=== PATIENT | male | born 1960 | race Caucasian/White ===

== ENCOUNTER 2023-07-30 10:24 | Outpatient (OUT) | payer OTHER, SELFPAY ==
[2023-07-30 11:07] LABS: Estimated Average Glucose 171 mg/dL; Glycohemoglobin A1C 7.6 % (4.5-6.2)
[2023-07-30 11:39] LABS: Alanine Aminotransferase 28 U/L (16-63); Albumin Globulin Ratio 0.9; Albumin Level 3.8 g/dL (3.4-5.0); Alkaline Phosphatase 77 U/L (46-116); Anion Gap 7.7; Aspartate Amino Transferase 19 U/L (15-37); BUN Creatinine Ratio 12.8; Bilirubin Direct 0.1 mg/dL (0.0-0.2); Bilirubin Total 0.4 mg/dL (0.2-1.0); Calcium 8.8 mg/dL (8.5-10.1); Carbon Dioxide 30.6 mmol/L (21.0-32.0); Chloride 103 mmol/L (98-107); Chol HDL Ratio 3.7; Cholesterol 158 mg/dL (<=200); Estimated GFR (African America >60 (>=60); Estimated GFR (Non-African Ame >60 (>=60); Glucose 141 mg/dL (74-106); HDL Cholesterol 43 mg/dL (40-60); Potassium 4.3 mmol/L (3.5-5.1); Sodium 137 mmol/L (136-145); Thyroid Stimulating Hormone 1.256 uIU/mL (0.358-3.740); Total Protein 7.8 g/dL (6.4-8.2); Triglycerides 178 mg/dL (<=150); VLDL CHOLESTEROL 35.6 mg/dL
[2023-07-30 11:41] LABS: Prostate Specific Antigen Scrn 0.36 ng/mL (<=4.00)
[2023-07-30 12:01] LABS: Basophils Absolute Auto 0.1 10^3/uL (0.0-0.1); Basophils Percent Auto 1.1 % (0.2-2.0); Eosinophils Absolute Auto 0.2 10^3/uL (0.0-0.7); Eosinophils Percent Auto 3.1 % (0.9-7.0); Hematocrit 42.5 % (42.0-54.0); Hemoglobin 13.4 g/dL (14.0-18.0); Immature Granulocytes Abs Auto 0.02 10^3/uL (0.00-0.03); Immature Granulocytes Pct Auto 0.4 % (0.0-0.5); Lymphocytes Absolute Auto 1.8 10^3/uL (1.2-3.8); Mean Corpuscular HGB Conc 31.5 g/dL (29.9-35.2); Mean Corpuscular Hemoglobin 28.8 pg (25.9-34.0); Mean Corpuscular Volume 91.4 fL (80.0-94.0); Mean Platelet Volume 12.5 fL (9.5-13.5); Monocytes Absolute Auto 0.6 10^3/uL (0.3-0.8); Monocytes Percent Auto 10.8 % (1.7-12.0); Neutrophils Absolute Auto 2.9 10^3/uL (1.4-6.5); Neutrophils Percent Auto 52.6 % (43.0-75.0); Platelet Count 196 10^3/uL (150-450); Red Blood Count 4.65 10^6/uL (4.70-6.10); Red Cell Distribution Width 15.1 % (11.0-15.0); White Blood Count 5.6 10^3/uL (4.0-11.0)
[2023-07-30 14:23] LABS: Microalbumin Urine Random <1.3 mg/dL (<=30.0)
== END 2023-07-30 10:25 | disposition home or self-care (01) ==
PROVIDERS: PCP Family Medicine; Visit Provider Family Medicine
DX: E11.65 Type 2 diabetes mellitus with hyperglycemia (principal); Z79.899 Other long term (current) drug therapy; E78.5 Hyperlipidemia, unspecified; Z12.5 Encounter for screening for malignant neoplasm of prostate; E66.9 Obesity, unspecified; Z68.30 Body mass index [BMI] 30.0-30.9, adult
CPT/HCPCS: 36415; 80048; 80061; 80076; 82043; 83036; 84443; 85025; G0103

== ENCOUNTER 2023-11-01 21:11 | Outpatient (REF) | payer OTHER, SELFPAY ==
[2023-11-01 21:57] LABS: Bilirubin Urine NEGATIVE (NEGATIVE); Blood Urine NEGATIVE (NEGATIVE); Clarity Urine CLEAR (CLEAR); Color Urine LT. YELLOW (YELLOW); Glucose Urine UA >=1000 mg/dL (NEGATIVE); Ketones Urine TRACE mg/dL (NEGATIVE); Leukocyte Esterase Urine NEGATIVE (NEGATIVE); Nitrite Urine NEGATIVE (NEGATIVE); Protein Urine NEGATIVE (NEG/TRACE); Specific Gravity Urine <=1.005 (1.005-1.025); Urobilinogen Urine 0.2 EU/dL (0.2-1.0)
[2023-11-01 22:06] LABS: Bacteria Urine NONE SEEN #/HPF (NONE SEEN); Cast Seen? NONE SEEN #/LPF (NONE SEEN); Crystals Seen? None Seen #/HPF (None Seen); Mucus Urine NONE SEEN (NONE SEEN); RBC Urine NONE SEEN #/HPF (0-2); Squamous Epithelial Cell Urine NONE SEEN #/LPF (NONE/RARE); Urine Culture Indicated ALREADY ORDERED; WBC Urine NONE SEEN #/HPF (NONE SEEN)
== END 2023-11-01 21:12 | disposition home or self-care (01) ==
LOC: LAB 21:11
PROVIDERS: PCP Family Medicine; Visit Provider Internal Medicine
DX: N30.00 Acute cystitis without hematuria (principal); B99.9 Unspecified infectious disease; R41.0 Disorientation, unspecified
CPT/HCPCS: 81001; 87086

== ENCOUNTER 2023-11-08 17:12 | Emergency (ER) | payer OTHER, SELFPAY ==
[2023-11-08 17:19] VITALS: BP 135/91; PULSE 79; RESP 18; TEMP 36.5; O2SAT 97; BMI 29.9
--- NOTE | 2023-11-08 17:33 | CT_ITS ---
The [address] [address] Patient Name: BROOKS RUBIO MRN: [id number] date: 1960 Sex: M Assigned Patient Location: ED.MAIN Current Patient Location: Accession/Order Number: [id number] Exam Date: 11/08/2023 18:30 Report Date: 11/08/2023 19:32 At the request of: JEROMY HONG Procedure: CT head/brain wo con NONCONTRAST CT SCAN OF THE HEAD HISTORY: 63-year-old male with headache and history of old stroke TECHNIQUE: Multiple axial images are taken from the level the vertex down to the base of the skull without the use of IV contrast. Images were then reconstructed in the sagittal and coronal planes. This exam was performed according to our departmental dose-optimization program which includes use of Automated Exposure Control, adjustment of the mA and/or kV according to patient size and/or use of iterative reconstruction technique. COMPARISON: None. FINDINGS: Brain Parenchyma: Encephalomalacia is demonstrated in the inferior left temporal lobe as well as the left parietal lobe and left gilman radiata. There is global, diffuse atrophy with periventricular decreased white matter attenuation. Basal ganglia calcifications are demonstrated on the right. Posterior fossa: Normal. Midline shift: None Extra-axial fluid collection: None Ventricles: Normal. Mastoid air cells: Normal. Sinuses: Normal. Cranium: No depressed skull fracture. Soft tissues: Normal. Orbits: Normal. CT/CT head/brain wo con IMPRESSION: 1. Chronic small vessel ischemic change. 2. Old stroke within the left MCA distribution. 3. In the setting of hyperacute stroke, findings may not be readily visualized on a noncontrast CT. Please correlate clinically. If there is any clinical concern for hyperacute stroke, MRI with diffusion-weighted imaging would help better delineate. Electronically authenticated by: ALEJANDRA RAMIREZ Date: 11/08/2023 19:32
--- NOTE | 2023-11-08 17:33 | XR_ITS ---
The [address] [address] Patient Name: BROOKS RUBIO MRN: [id number] date: 1960 Sex: M Assigned Patient Location: ER Current Patient Location: ER Accession/Order Number: [id number] Exam Date: 11/08/2023 18:28 Report Date: 11/08/2023 18:56 At the request of: JEROMY HONG Procedure: XR chest 1V EXAM: XR chest 1V at 1824 hours HISTORY: Altered mental status COMPARISON: 09/17/2022 TECHNIQUE: AP upright portable chest x-ray FINDINGS: The heart is borderline enlarged with interval resolution of the vascular congestion and slight prominence of the interstitial markings seen in the prior study. There is slight elevation of the left hemidiaphragm, with a very small amount of atelectasis or scarring at the left lung base. No effusion or pneumothorax is identified. Multiple sternal wire sutures are present. The osseous structures are grossly intact. XR/XR chest 1V IMPRESSION: No apparent acute infiltrate or evidence of cardiac decompensation. Interval improvement of the previous identified vascular congestion and suspected interstitial edema. A small amount of atelectasis or scarring persist at the left lung base. Electronically authenticated by: DARSHAN MCGRATH Date: 11/08/2023 18:56
--- NOTE | 2023-11-08 17:33 | ECG_ITS ---
The [facility] Test Date: 2023-11-08 Pat Name: BROOKS RUBIO Department: Room: - Gender: Male [employer]: : 1960 Requested By: CECELIA HOUSE Order Number: [id number] Reading MD: CECELIA ORTA Measurements Intervals Industry Rate: 68 P: 0 MT: 216 QRS: -52 QRSD: 136 T: 60 QT: 428 QTc: 446 Interpretive Statements 1100 Sinus rhythm with first degree AV block 2330 Nonspecific intraventricular conduction block 7200 Abnormal left axis deviation 9150 abnormal ECG No previous ECG available for comparison Electronically Signed On 11-09-2023 7:09:36 EST by CECELIA ORTA
--- NOTE | 2023-11-08 17:59 | ED_ITS ---
HPI - General Adult General Chief complaint: Altered Mental Status Stated complaint: ALTERED MENTAL STATUS Time Seen by Provider: 11/08/23 17:33 Source: patient Mode of arrival: Wheelchair Limitations: no limitations History of Present Illness HPI narrative: Patient is a pleasant 63-year-old male with a history of previous CVA 5 to 6 years ago and chronic right-sided deficit who presents to the emergency departme with family member/friend who helps to care for the patient as he lives alone. Patient was referred to the ER by his PCP office to rule out a UTI as he has had a change in mentation over the last 2 to 3 weeks. He has not had any falls or injuries. Friend at bedside states that the patient has been more difficult to understand in terms of his conversation, although he denies any new slurred or garbled speech. Patient has no focal medical complaints at this time and states he feels fine. Patient's friend states that he had an episode of incontinence/confusion where he urinated on the bathroom floor which is very unlike him. He has not had any upper respiratory symptoms or vomiting. Related Data Allergies Allergy/AdvReac Type Severity Reaction Status Date / Time No Known Drug Allergies Allergy Verified 11/08/23 17:23 Review of Systems ROS Constitutional Denies: fever or chills Ears, nose, mouth, and throat Denies: throat pain Cardiovascular Denies: chest pain Respiratory Denies: shortness of breath or cough Gastrointestinal Denies: abdominal pain, nausea or vomiting Genitourinary Denies: painful urination Musculoskeletal Denies: back pain Integumentary/Breast Denies: rash Neurological Denies: headache Hematologic/Lymphatic Denies: easy bruising PFSH PFSH Social History Smoking status: Former smoker Exam Narrative Exam Narrative: Gen.: Awake, alert, in no distress Head: Normocephalic, atraumatic ENT: Moist mucous membranes, mild drooping of the left corner of the mouth Respiratory: No respiratory distress, lungs clear bilaterally Cardio: Regular rate and rhythm Gastrointestinal: Abdomen is soft, nondistended and nontender to palpation Extremities: Weakness of the right arm with mild weakness of the right foot to dorsiflexion and plantarflexion Psych: Normal mood and affect Neuro: No focal neuro deficit Skin: Warm, dry, intact Constitutional Vital Signs, click to edit/add: Last Vital Signs Temp 97.5 F L 11/08/23 19:17 Pulse 81 11/08/23 20:06 Resp 16 11/08/23 20:06 BP 124/88 11/08/23 20:06 Pulse Ox 97 11/08/23 20:06 O2 Del Method Room Air 11/08/23 20:06 Course Vital Signs Vital signs: Vital Signs Temperature 97.7 F 11/08/23 17:19 Pulse Rate 79 11/08/23 17:19 Respiratory Rate 18 11/08/23 17:19 Blood Pressure 135/91 11/08/23 17:19 Pulse Oximetry 97 11/08/23 17:19 Oxygen Delivery Method Room Air 11/08/23 17:19 Temperature 97.5 F L 11/08/23 19:17 Pulse Rate 81 11/08/23 20:06 Respiratory Rate 16 11/08/23 20:06 Blood Pressure 124/88 11/08/23 20:06 Pulse Oximetry 97 11/08/23 20:06 Oxygen Delivery Method Room Air 11/08/23 20:06 Medical Decision Making MDM Narrative Medical decision making narrative: CT of the brain, chest x-ray are unremarkable, showing only previous stroke. Lab studies show mild hypokalemia and slightly elevated TSH. Anxious for discharge home, follow-up closely with PCP, vital signs are stable at discharge. Return to the emergency department if symptoms change or worsen Medical Records Medical records reviewed: Yes I reviewed the patient's medical records Lab Data Lab results reviewed: Yes I reviewed the patient's lab results Labs: Lab Results 11/08/23 11/08/23 11/08/23 Range/Units 18:00 18:12 18:45 WBC 7.2 (4.0-11.0) 10^3/uL RBC 5.38 (4.70-6.10) 10^6/uL Hgb 15.4 (14.0-18.0) g/dL Hct 46.7 (42.0-54.0) % MCV 86.8 (80.0-94.0) fL MCH 28.6 (25.9-34.0) pg MCHC 33.0 (29.9-35.2) g/dL RDW 13.9 (11.0-15.0) % Plt Count 181 (150-450) 10^3/uL MPV 12.4 (9.5-13.5) fL Neut % (Auto) 48.7 (43.0-75.0) % Lymph % (Auto) 36.7 (20.5-60.0) % [place] % (Auto) 11.8 (1.7-12.0) % Eos % (Auto) 1.5 (0.9-7.0) % Baso % (Auto) 1.0 (0.2-2.0) % Neut # (Auto) 3.5 (1.4-6.5) 10^3/uL Lymph # (Auto) 2.7 (1.2-3.8) 10^3/uL [place] # (Auto) 0.9 H (0.3-0.8) 10^3/uL Eos # (Auto) 0.1 (0.0-0.7) 10^3/uL Baso # (Auto) 0.1 (0.0-0.1) 10^3/uL Abs Immat Gran (auto) 0.02 (0.00-0.03) 10^3/uL Imm/Tot Granulo (auto) 0.3 (0.0-0.5) % Sodium 134 L (136-145) mmol/L Potassium 3.1 L (3.5-5.1) mmol/L Chloride 98 (98-107) mmol/L Carbon Dioxide 24.5 (21.0-32.0) mmol/L Anion Gap 14.6 BUN 16.0 (7.0-18.0) mg/dL Creatinine 1.38 H (0.70-1.30) mg/dL Est GFR ( Amer) >60 (>=60) Est GFR (Non-Af Amer) 52 L (>=60) BUN/Creatinine Ratio 11.6 Glucose 224 H (74-106) mg/dL Calcium 10.1 (8.5-10.1) mg/dL Total Bilirubin 0.5 (0.2-1.0) mg/dL AST 31 (15-37) U/L ALT <6 L (16-63) U/L Alkaline Phosphatase 82 (46-116) U/L Ammonia 21 (11-32) umol/L Troponin I High Sens 46.8 (4.0-76.1) pg/mL Total Protein 8.5 H (6.4-8.2) g/dL Albumin 4.0 (3.4-5.0) g/dL Globulin 4.5 g/dL Albumin/Globulin Ratio 0.9 TSH 3.984 H (0.358-3.740) uIU/mL Free T4 1.19 (0.76-1.46) ng/dL Free T3 2.67 (2.18-3.98) pg/mL Urine Color (YELLOW) Urine Clarity (CLEAR) Urine pH (5.0-9.0) Ur Specific [place] (1.005-1.025) Urine Protein (NEG/TRACE) mg/dL Urine Glucose (UA) (NEGATIVE) mg/dL Urine Ketones (NEGATIVE) mg/dL Urine Occult Blood (NEGATIVE) Urine Nitrite (NEGATIVE) Urine Bilirubin (NEGATIVE) Urine Urobilinogen (0.2-1.0) EU/dL Ur Leukocyte Esterase (NEGATIVE) 11/08/23 Range/Units 20:32 WBC (4.0-11.0) 10^3/uL RBC (4.70-6.10) 10^6/uL Hgb (14.0-18.0) g/dL Hct (42.0-54.0) % MCV (80.0-94.0) fL MCH (25.9-34.0) pg MCHC (29.9-35.2) g/dL RDW (11.0-15.0) % Plt Count (150-450) 10^3/uL MPV (9.5-13.5) fL Neut % (Auto) (43.0-75.0) % Lymph % (Auto) (20.5-60.0) % [place] % (Auto) (1.7-12.0) % Eos % (Auto) (0.9-7.0) % Baso % (Auto) (0.2-2.0) % Neut # (Auto) (1.4-6.5) 10^3/uL Lymph # (Auto) (1.2-3.8) 10^3/uL [place]ster # (Auto) (0.3-0.8) 10^3/uL Eos # (Auto) (0.0-0.7) 10^3/uL Baso # (Auto) (0.0-0.1) 10^3/uL Abs Immat Gran (auto) (0.00-0.03) 10^3/uL Imm/Tot Granulo (auto) (0.0-0.5) % Sodium (136-145) mmol/L Potassium (3.5-5.1) mmol/L Chloride (98-107) mmol/L Carbon Dioxide (21.0-32.0) mmol/L Anion Gap BUN (7.0-18.0) mg/dL Creatinine (0.70-1.30) mg/dL Est GFR ( Amer) (>=60) Est GFR (Non-Af Amer) (>=60) BUN/Creatinine Ratio Glucose (74-106) mg/dL Calcium (8.5-10.1) mg/dL Total Bilirubin (0.2-1.0) mg/dL AST (15-37) U/L ALT (16-63) U/L Alkaline Phosphatase (46-116) U/L Ammonia (11-32) umol/L Troponin I High Sens (4.0-76.1) pg/mL Total Protein (6.4-8.2) g/dL Albumin (3.4-5.0) g/dL Globulin g/dL Albumin/Globulin Ratio TSH (0.358-3.740) uIU/mL Free T4 (0.76-1.46) ng/dL Free T3 (2.18-3.98) pg/mL Urine Color Yellow (YELLOW) Urine Clarity Clear (CLEAR) Urine pH 6.0 (5.0-9.0) Ur Specific [place] <=1.005 A (1.005-1.025) Urine Protein Negative (NEG/TRACE) mg/dL Urine Glucose (UA) >=1000 A (NEGATIVE) mg/dL Urine Ketones 15 A (NEGATIVE) mg/dL Urine Occult Blood Trace-i (NEGATIVE) Urine Nitrite Negative (NEGATIVE) Urine Bilirubin Negative (NEGATIVE) Urine Urobilinogen 0.2 (0.2-1.0) EU/dL Ur Leukocyte Esterase Negative (NEGATIVE) Imaging Data Chest x-ray: Attestation: I have reviewed the pertinent imaging results. Radiologist's impression: Procedure: XR chest 1V EXAM: XR chest 1V at 1824 hours HISTORY: Altered mental status COMPARISON: 09/17/2022 TECHNIQUE: AP upright portable chest x-ray FINDINGS: The heart is borderline enlarged with interval resolution of the vascular congestion and slight prominence of the interstitial markings seen in the prior study. There is slight elevation of the left hemidiaphragm, with a very small amount of atelectasis or scarring at the left lung base. No effusion or pneumothorax is identified. Multiple sternal wire sutures are present. The osseous structures are grossly intact. IMPRESSION: No apparent acute infiltrate or evidence of cardiac decompensation. Interval improvement of the previous identified vascular congestion and suspected interstitial edema. A small amount of atelectasis or scarring persist at the left lung base. Electronically authenticated by: DARSHAN MCGRATH Date: 11/08/2023 18:56 CT scan - head: Attestation: I have reviewed the pertinent imaging results. Radiologist's impression: Procedure: CT head/brain wo con NONCONTRAST CT SCAN OF THE HEAD HISTORY: 63-year-old male with headache and history of old stroke TECHNIQUE: Multiple axial images are taken from the level the vertex down to the base of the skull without the use of IV contrast. Images were then reconstructed in the sagittal and coronal planes. This exam was performed according to our departmental dose-optimization program which includes use of Automated Exposure Control, adjustment of the mA and/or kV according to patient size and/or use of iterative reconstruction technique. COMPARISON: None. FINDINGS: Brain Parenchyma: Encephalomalacia is demonstrated in the inferior left temporal lobe as well as the left parietal lobe and left gilman radiata. There is global, diffuse atrophy with periventricular decreased white matter attenuation. Basal ganglia calcifications are demonstrated on the right. Posterior fossa: Normal. Midline shift: None Extra-axial fluid collection: None Ventricles: Normal. Mastoid air cells: Normal. Sinuses: Normal. Cranium: No depressed skull fracture. Soft tissues: Normal. Orbits: Normal. IMPRESSION: 1. Chronic small vessel ischemic change. 2. Old stroke within the left MCA distribution. 3. In the setting of hyperacute stroke, findings may not be readily visualized on a noncontrast CT. Please correlate clinically. If there is any clinical concern for hyperacute stroke, MRI with diffusion-weighted imaging would help better delineate. Electronically authenticated by: ALEJANDRA RAMIREZ Date: 11/08/2023 19:32 ECG Data Attestation: I personally reviewed and interpreted this ECG as follows: (Normal sinus rhythm at a rate of 68, no acute ST elevation or ectopy. EKG reviewed by attending physician) Discharge Plan Discharge Chief Complaint: Altered Mental Status Clinical Impression: Acute hypokalemia Patient Disposition: Home, Self-Care Time of Disposition Decision: 20:50 Condition: Good Instructions: Hypokalemia (ED) Stand Alone Forms: Portal Instructions Referrals: Juwan Vera MD [Primary Care Provider] - As soon as possible
[2023-11-08 18:05] VITALS: PULSE 68
[2023-11-08 18:37] LABS: Ammonia 21 umol/L (11-32)
[2023-11-08 18:51] LABS: Alanine Aminotransferase <6 U/L (16-63); Albumin Globulin Ratio 0.9; Alkaline Phosphatase 82 U/L (46-116); Anion Gap 14.6; Aspartate Amino Transferase 31 U/L (15-37); BUN Creatinine Ratio 11.6; Bilirubin Total 0.5 mg/dL (0.2-1.0); Calcium 10.1 mg/dL (8.5-10.1); Carbon Dioxide 24.5 mmol/L (21.0-32.0); Chloride 98 mmol/L (98-107); Estimated GFR (African America >60 (>=60); Estimated GFR (Non-African Ame 52 (>=60); Globulin 4.5 g/dL; Glucose 224 mg/dL (74-106); Potassium 3.1 mmol/L (3.5-5.1); Sodium 134 mmol/L (136-145); Thyroid Stimulating Hormone 3.984 uIU/mL (0.358-3.740); Total Protein 8.5 g/dL (6.4-8.2); Troponin I High Sensitivity 46.8 pg/mL (4.0-76.1)
[2023-11-08 19:12] LABS: Basophils Absolute Auto 0.1 10^3/uL (0.0-0.1); Eosinophils Absolute Auto 0.1 10^3/uL (0.0-0.7); Eosinophils Percent Auto 1.5 % (0.9-7.0); Hematocrit 46.7 % (42.0-54.0); Hemoglobin 15.4 g/dL (14.0-18.0); Immature Granulocytes Abs Auto 0.02 10^3/uL (0.00-0.03); Immature Granulocytes Pct Auto 0.3 % (0.0-0.5); Lymphocytes Absolute Auto 2.7 10^3/uL (1.2-3.8); Lymphocytes Percent Auto 36.7 % (20.5-60.0); Mean Corpuscular Hemoglobin 28.6 pg (25.9-34.0); Mean Corpuscular Volume 86.8 fL (80.0-94.0); Mean Platelet Volume 12.4 fL (9.5-13.5); Monocytes Absolute Auto 0.9 10^3/uL (0.3-0.8); Monocytes Percent Auto 11.8 % (1.7-12.0); Neutrophils Absolute Auto 3.5 10^3/uL (1.4-6.5); Neutrophils Percent Auto 48.7 % (43.0-75.0); Platelet Count 181 10^3/uL (150-450); Red Blood Count 5.38 10^6/uL (4.70-6.10); Red Cell Distribution Width 13.9 % (11.0-15.0); White Blood Count 7.2 10^3/uL (4.0-11.0)
[2023-11-08 19:17] VITALS: BP 127/90; PULSE 75; RESP 20; TEMP 36.4; O2SAT 96
[2023-11-08 19:48] LABS: Free T3 2.67 pg/mL (2.18-3.98)
[2023-11-08] MEDS: POTASSIUM CHLORIDE 10 MEQ ER TABLET 40 MEQ PO (19:50)
[2023-11-08 20:06] VITALS: BP 124/88; PULSE 81; RESP 16; O2SAT 97
[2023-11-08 20:13] LABS: Free T4 1.19 ng/dL (0.76-1.46)
--- NOTE | 2023-11-08 20:18 | PC.NURSE ---
Attempted to stand with 2 nurses to give urine, unable to go. OK to cath.
--- NOTE | 2023-11-08 20:37 | PC.NURSE ---
Pt straight cathed for 300cc straw colored. Pt tolerated well
[2023-11-08 20:42] LABS: Bilirubin Urine NEGATIVE (NEGATIVE); Blood Urine TRACE-I (NEGATIVE); Clarity Urine CLEAR (CLEAR); Color Urine YELLOW (YELLOW); Glucose Urine UA >=1000 mg/dL (NEGATIVE); Ketones Urine 15 mg/dL (NEGATIVE); Leukocyte Esterase Urine NEGATIVE (NEGATIVE); Nitrite Urine NEGATIVE (NEGATIVE); Protein Urine NEGATIVE (NEG/TRACE); Specific Gravity Urine <=1.005 (1.005-1.025); Urine Microscopic Indicated YES; Urobilinogen Urine 0.2 EU/dL (0.2-1.0)
[2023-11-08 21:20] LABS: Bacteria Urine NONE SEEN #/HPF (NONE SEEN); Cast Seen? NONE SEEN #/LPF (NONE SEEN); Crystals Seen? None Seen #/HPF (None Seen); Mucus Urine NONE SEEN (NONE SEEN); RBC Urine 0-2 #/HPF (0-2); Squamous Epithelial Cell Urine NONE SEEN #/LPF (NONE/RARE); WBC Urine NONE SEEN #/HPF (NONE SEEN)
== END 2023-11-08 21:15 | disposition home or self-care (01) ==
PROVIDERS: Physician Assistant; Emergency Provider Emergency Medicine Emergency Medical Services; PCP Family Medicine
DX: E87.6 Hypokalemia (principal); I69.398 Other sequelae of cerebral infarction; Z87.891 Personal history of nicotine dependence
CPT/HCPCS: 36415; 70450; 71045; 80053; 81001; 82140; 84439; 84443; 84481; 84484; 85025; 93005; 99285